=== PATIENT | female | born 1980 | race Caucasian/White ===

== ENCOUNTER 2017-01-27 12:53 | Emergency (ER) | payer OTHER ==
[~2017-01-27] VITALS: Ht 160 cm; Wt 56.7 kg
[2017-01-27 13:05] VITALS: BP 115/70
[2017-01-27] MEDS ORDERED: AMOX1TAB61 PO (13:16)
[2017-01-27] MEDS ORDERED: METH4TAB2 PO (13:16)
[2017-01-27] MEDS ORDERED: TRAM50TA PO (13:16)
--- NOTE | 2017-01-27 13:16 | PHYS DOC ---
Past Medical History Past Medical History: Other Additional Past Medical Histor: LATENT TB Past Surgical History: No Surgical History Alcohol Use: None Drug Use: None Adult General Chief Complaint Chief Complaint: GENERALIZED BODY ACHES HPI HPI Patient is a 36 year old with a history of latent TB presents to the ED complaining of sore throat x 2 days. Describes it as sharp. Rates it as 7/10. Pain with swallowing. Associated symptoms include ear pain and subjective fever. Patient also complaining of an exacerbation of her back pain. Pain with ROM since she bent over to pick something up. States she thinks she strained a muscle. Denies bowel/bladder changes, saddle anesthesia, trauma, Chest pain, shortness of breath, night sweats, hemoptysis, cough, weakness, dizziness, nausea/vomiting or abdominal pain. Review of Systems Review of Systems Constitutional: Denies fever or chills [] Eyes: Denies change in visual acuity, redness, or eye pain [] HENT: Complains of sore throat and ear pain. Denies nasal congestion. [] Respiratory: Denies cough or shortness of breath [] Cardiovascular: No additional information not addressed in HPI [] GI: Denies abdominal pain, nausea, vomiting, bloody stools or diarrhea [] : Denies dysuria or hematuria [] Musculoskeletal: Denies back pain or joint pain [] Integument: Denies rash or skin lesions [] Neurologic: Denies headache, focal weakness or sensory changes [] Endocrine: Denies polyuria or polydipsia [] All other systems were reviewed and found to be within normal limits, except as documented in this note. Allergies Allergies Allergies Coded Allergies Type Severity Reaction Last Updated Verified No Known Drug Allergies 01/27/17 No Physical Exam Physical Exam Constitutional: Well developed, well nourished, no acute distress, non-toxic appearance. [] HENT: Normocephalic, atraumatic, bilateral external ears normal, oropharynx moist, MILD PHARYNGEAL ERYTHEMA WITH EXUDATES. nose normal. [] Eyes: PERRLA, EOMI, conjunctiva normal, no discharge. [] Neck: Normal range of motion, no tenderness, supple, no stridor. [] Cardiovascular:Heart rate regular rhythm, no murmur [] Lungs & Thorax: Bilateral breath sounds clear to auscultation [] Abdomen: Bowel sounds normal, soft, no tenderness, no masses, no pulsatile masses. [] Skin: Warm, dry, no erythema, no rash. [] Back: No tenderness, no CVA tenderness. [] Extremities: No tenderness, no cyanosis, no clubbing, ROM intact, no edema. [] Neurologic: Alert and oriented X 3, normal motor function, normal sensory function, no focal deficits noted. [] Psychologic: Affect normal, judgement normal, mood normal. [] Current Patient Data Vital Signs Vital Signs Date Time Temp Pulse Resp B/P (MAP) Pulse Ox O2 Delivery O2 Flow Rate FiO2 01/27/17 13:05 98.2 82 18 99 Room Air 98.2 EKG EKG [] Radiology/Procedures Radiology/Procedures [] Course & Med Decision Making Course & Med Decision Making Pertinent Labs and Imaging studies reviewed. (See chart for details) []Will treat with Augmentin for pharyngitis. Discussed symptomatic treatment and outpatient. Patient states back pain that she exacerbated a few days ago. Pain reproducible with motion. No midline or bony tenderness. no focal neuro deficits. Requesting tramadol for pain. Will write a prescription for tramadol. Discussed symptomatic treatment and follow-up with PCP. Provided contact information/education. Discussed reasons to return to the ED. Patient understands and agrees with plan. Dragon Disclaimer Dragon Disclaimer This electronic medical record was generated, in whole or in part, using a voice recognition dictation system. Departure Departure Impression: Primary Impression: Pharyngitis Additional Impression: Muscle strain Disposition: 01 HOME, SELF-CARE Condition: STABLE Referrals: RAUL LOPEZ MD Patient Instructions: Muscle Strain, Viral and Bacterial Pharyngitis Scripts Tramadol Hcl (TRAMADOL HCL) 50 Mg Tablet 1 TAB PO PRN Q6HRS, #12 TAB Prov: RADHA STEINER 01/27/17 Methylprednisolone (MEDROL) 4 Mg Tab.ds.pk 1 PKG PO UD, #1 PKG Prov: RADHA STEINER 01/27/17 Amoxicillin/Potassium Clav (AUGMENTIN 875-125 TABLET) 1 Each Tablet 1 TAB PO BID, #20 TAB Prov: RADHA STEINER 01/27/17 Problem Qualifiers RADHA STEINER Jan 27, 2017 13:16
== END 2017-01-27 13:22 | disposition home or self-care (01) ==
LOC: ER 12:53
DX: J02.9 Acute pharyngitis, unspecified (principal); S39.012A Strain of muscle, fascia and tendon of lower back, initial encounter; X58.XXXA Exposure to other specified factors, initial encounter; Y93.89 Activity, other specified; Y99.8 Other external cause status; Y92.89 Other specified places as the place of occurrence of the external cause
CPT/HCPCS: 99283

== ENCOUNTER 2017-02-19 19:14 | Emergency (ER) | payer OTHER ==
[~2017-02-19 19:14] MED LIST: AMOX1TAB61 PO; METH4TAB2 PO; TRAM50TA PO
[2017-02-19 19:59] VITALS: BP 105/71
[2017-02-19] MEDS ORDERED: DICL50TA4 PO (21:05)
[2017-02-19] MEDS ORDERED: DIAZ5TAB PO (21:05)
--- NOTE | 2017-02-19 21:05 | PHYS DOC ---
Past Medical History Past Medical History: Other Additional Past Medical Histor: LATENT TB Past Surgical History: No Surgical History Alcohol Use: None Drug Use: None Adult General Chief Complaint Chief Complaint: BACK PAIN - NO INJURY HPI HPI Patient is a 36 year old female who presents with right low back pain radiating to the right lower extremity that began a month ago. Patient denies any known injury. She states she's had this pain previously. Denies any loss of bowel bladder function. She describes the pain as throbbing worse on bending and twisting. She states the pain is intermittent. Review of Systems Review of Systems Constitutional: Denies fever or chills [] GI: Denies abdominal pain, nausea, vomiting, bloody stools or diarrhea [] : Denies dysuria or hematuria [] Musculoskeletal: Right low back pain radiating to the right lower extremity Integument: Denies rash or skin lesions [] Neurologic: Denies headache, focal weakness or sensory changes [] All other systems were reviewed and found to be within normal limits, except as documented in this note. Allergies Allergies Allergies Coded Allergies Type Severity Reaction Last Updated Verified No Known Drug Allergies 01/27/17 No Physical Exam Physical Exam Constitutional: Well developed, well nourished, no acute distress, non-toxic appearance. [] Abdomen: Bowel sounds normal, soft, no tenderness, no masses, no pulsatile masses. [] Skin: Warm, dry, no erythema, no rash. [] Back: Diffuse paraspinal muscle tenderness in the right lumbar spine, no midline lumbar spine tenderness, no CVA tenderness. Positive right leg straight raises. Extremities: No tenderness, no cyanosis, no clubbing, ROM intact, no edema. [] Neurologic: Alert and oriented X 3, normal motor function, normal sensory function, no focal deficits noted. [] Psychologic: Affect normal, judgement normal, mood normal. [] Current Patient Data Vital Signs Vital Signs Date Time Temp Pulse Resp B/P (MAP) Pulse Ox O2 Delivery O2 Flow Rate FiO2 02/19/17 19:59 98.0 64 18 98 Room Air 98.0 EKG EKG [] Radiology/Procedures Radiology/Procedures [] Course & Med Decision Making Course & Med Decision Making Pertinent Labs and Imaging studies reviewed. (See chart for details) Patient is in the ED with exacerbation of low back pain with sciatica. Discharged with Valium and diclofenac. Follow-up with her PCP in 1-2 weeks. Marci Disclaimer Marci Disclaimer This electronic medical record was generated, in whole or in part, using a voice recognition dictation system. Departure Departure Impression: Primary Impression: Right low back pain Additional Impression: Sciatica Disposition: 01 HOME, SELF-CARE Condition: STABLE Referrals: NO PCP (PCP) follow up in one week JOSE BURROWS MD follow up in one week Patient Instructions: Back Pain, Adult, Sciatica Additional Instructions: You were seen with exacerbation of chronic back pain. Take the prescribed medicines as ordered. Follow-up with your doctor in 1-2 weeks. Apply heat to your back Scripts Diazepam (VALIUM) 5 Mg Tablet 5 MG PO TID, #15 TAB Prov: BENY HENDERSON APRN 02/19/17 Diclofenac Sodium (DICLOFENAC SODIUM) 50 Mg Tablet.dr 1 TAB PO BID, #30 TAB 0 Refills Prov: BENY HENDERSON APRN 02/19/17 Problem Qualifiers Primary Impression: Right low back pain Chronicity: chronic Sciatica presence: with sciatica Sciatica laterality: sciatica of right side Qualified Codes: M54.41 - Lumbago with sciatica, right side; G89.29 - Other chronic pain Additional Impression: Sciatica Laterality: right Qualified Codes: M54.31 - Sciatica, right side BENY HENDERSON APRN Feb 19, 2017 21:05
== END 2017-02-19 21:13 | disposition home or self-care (01) ==
LOC: ER 19:14
DX: M54.41 Lumbago with sciatica, right side (principal); G89.29 Other chronic pain
CPT/HCPCS: 99283

== ENCOUNTER 2018-11-23 16:47 | Emergency (ER) | payer OTHER ==
[~2018-11-23] VITALS: Ht 154.9 cm; Wt 59.0 kg
[~2018-11-23 16:47] MED LIST changes: +DIAZ5TAB PO; +DICL50TA4 PO
[2018-11-23 16:59] VITALS: BP 142/89
[2018-11-23] MEDS ORDERED: KETOROLAC 30 MG/ML VIAL. IM STA (17:31)
[2018-11-23] MEDS ORDERED: AMOX1TAB61 PO (17:38)
--- NOTE | 2018-11-23 17:39 | PHYS DOC ---
Past Medical History Past Medical History: Other Additional Past Medical Histor: LATENT TB Past Surgical History: No Surgical History Alcohol Use: None Drug Use: None Adult General Chief Complaint Chief Complaint: DENTAL PROBLEM HPI HPI Patient is a 37 year old female that presents with dental pain has been ongoing since 5 AM. The patient states that she's had a tooth in the back left lower portion of her mouth that has been hurting for quite a while. She rates her pain as 10 out of 10 in severity. She is not taking medicine prior to arrival. Review of Systems Review of Systems Constitutional: Denies fever or chills [] Eyes: Denies change in visual acuity, redness, or eye pain [] HENT: Reports tooth pain and facial swelling. Respiratory: Denies cough or shortness of breath [] Cardiovascular: No additional information not addressed in HPI [] GI: Denies abdominal pain, nausea, vomiting, bloody stools or diarrhea [] : Denies dysuria or hematuria [] Musculoskeletal: Denies back pain or joint pain [] Integument: Denies rash or skin lesions [] Neurologic: Denies headache, focal weakness or sensory changes [] Endocrine: Denies polyuria or polydipsia [] Complete systems were reviewed and found to be within normal limits, except as documented in this note. Allergies Allergies Allergies Coded Allergies Type Severity Reaction Last Updated Verified No Known Drug Allergies 01/27/17 No Physical Exam Physical Exam Constitutional: Well developed, well nourished, no acute distress, non-toxic appearance. [] HENT: Normocephalic, atraumatic, bilateral external ears normal, oropharynx moist, no oral exudates, nose normal. Has cracked tooth at 17 with swelling. Eyes: PERRLA, EOMI, conjunctiva normal, no discharge. [] Neck: Normal range of motion, no tenderness, supple, no stridor. [] Cardiovascular:Heart rate regular rhythm, no murmur [] Lungs & Thorax: Bilateral breath sounds clear to auscultation [] Abdomen: Bowel sounds normal, soft, no tenderness, no masses, no pulsatile masses. [] Skin: Warm, dry, no erythema, no rash. [] Back: No tenderness, no CVA tenderness. [] Extremities: No tenderness, no cyanosis, no clubbing, ROM intact, no edema. [] Neurologic: Alert and oriented X 3, normal motor function, normal sensory function, no focal deficits noted. [] Psychologic: Affect normal, judgement normal, mood normal. [] EKG EKG [] Radiology/Procedures Radiology/Procedures [] Course & Med Decision Making Course & Med Decision Making Pertinent Labs and Imaging studies reviewed. (See chart for details) Will give her lidocaine to put on cotton balls against teeth. Will also give IM Toradol. Will d/c on Antibiotics and have follow up with dental. Marci Disclaimer Dragon Disclaimer This electronic medical record was generated, in whole or in part, using a voice recognition dictation system. Departure Departure Impression: Primary Impression: Infected dental caries Disposition: HOME, SELF-CARE Condition: STABLE Referrals: NO PCP (PCP) Patient Instructions: Carbamide Peroxide dental solution, Dental Caries Additional Instructions: Thank you for visiting [facility]. We appreciate you trusting us with your care. If any additional problems come up don't hesitate to return to visit us. Please follow up with your primary care provider so they can plan additional care if needed and know about the problem that you had. If symptoms worsen come back to the Emergency Department. Any concerning symptoms that start such as chest pain, shortness of air, weakness or numbness on one side of the body, running high fevers or any other concerning symptoms return to the ER. You have been prescribed an antibiotic today to help fight your infection. Please take all of the antibiotic as directed. If after 48 hours the infection is not improving, please return for more care. If the infection worsens, return to ER for additional care. Scripts Amoxicillin/Potassium Clav (AUGMENTIN 875-125 TABLET) 1 Each Tablet 1 TAB PO BID for 7 Days, #14 TAB Prov: RAUL MORAN APRN 11/23/18 RAUL MORAN APRN Nov 23, 2018 17:39
[2018-11-23] MEDS ORDERED: LIDOCAINE 2% VISCOUS 15 ML SOLUTION. SWSW ONE (17:45)
== END 2018-11-23 17:49 | disposition home or self-care (01) ==
LOC: ER 16:47
DX: K02.9 Dental caries, unspecified (principal)
CPT/HCPCS: 96372; 99283; J1885